=== PATIENT | female | born 1975 | race African-American/Black ===

== ENCOUNTER 2016-12-09 09:35 | Emergency (ER) | payer SELFPAY ==
[2016-12-09] MEDS ORDERED: ONDANSETRON 4 MG TAB.RAPDIS PO ONE (10:51)
[2016-12-09] MEDS ORDERED: HYDROCODONE/ACETAMINOPHEN 5-325 MG TABLET PO ONE (10:51)
[2016-12-09] MEDS ORDERED: DIPH/PERTUSS(ACELL)/TETANUS VAC/PF 0.5 ML SYR (>=10YO) IM ONE (10:51)
--- NOTE | 2016-12-09 10:55 | ER Document Report ---
HPI - HPI Patient complains to provider of: right plantar wound Onset: Just prior to arrival Onset/Duration: Sudden Quality of pain: Achy Severity: Severe Pain Level: 5 Context: Patient presents emergency department with laceration to bottom of her right foot. She reports she was going into a shed with her shoes on when her shoe fell off and she slid her foot on a nail. Patient does not remember when her last tetanus was. Patient reports that he was in her backyard with dirt no brackish water. Laceration ~3 cm vertical noted. No active bleeding. Associated Symptoms: None Exacerbated by: Walking Relieved by: Denies Similar symptoms previously: No Recently seen / treated by doctor: No - DERM Skin Color: Normal Past Medical History - General Information source: Patient - Social History Smoking Status: Never Smoker Chew tobacco use (# tins/day): No Frequency of alcohol use: Rare Drug Abuse: None Occupation: home health Lives with: Family Family History: Reviewed & Not Pertinent Patient has suicidal ideation: No Patient has homicidal ideation: No - Medical History Medical History: Negative Renal/ Medical History: Denies: Hx Peritoneal Dialysis Past Surgical History: Reports: Hx Section - 2002 - Immunizations Hx Diphtheria, Pertussis, Tetanus Vaccination: Yes - 2008 Vertical Provider Document - CONSTITUTIONAL Agree With Documented VS: Yes Exam Limitations: No Limitations General Appearance: WD/WN, Mild Distress - winces when wound palpated - INFECTION CONTROL TRAVEL OUTSIDE OF THE [place] IN LAST 30 DAYS: No - HEENT HEENT: Atraumatic, Normocephalic - NECK Neck: Normal Inspection, Supple - RESPIRATORY Respiratory: No Respiratory Distress O2 Sat by Pulse Oximetry: 97 - CARDIOVASCULAR Cardiovascular: Regular Rate - MUSCULOSKELETAL/EXTREMETIES Musculoskeletal/Extremeties: MAEW, FROM, Tender - right plantar foot proximal to great and 2nd digit with 3 cm vertical laceration noted, no active bleeding - NEURO Level of Consciousness: Awake, Alert, Appropriate Motor/Sensory: No Motor Deficit - DERM Integumentary: Warm, Dry Course - Re-evaluation Re-evalutation: 12/09/16 11:29 Wound cleaned well, xray neg for foreign body. Pt instructed on care of the laceration, Steri-Strips placed, postop shoe nonweightbearing for the next 3 days. Pt is instructed on signs and symptoms of infection. Patient was instructed on the importance of monitoring the foot. She'll be placed on pain medication with prophylactic antibiotics. Patient was instructed to return to the emergency department for any signs of infection she verbalized understanding. - Vital Signs Vital signs: Temp Pulse Resp BP Pulse Ox 97.8 F 85 17 122/88 H 97 12/09/16 09:45 12/09/16 09:45 12/09/16 09:45 12/09/16 09:45 12/09/16 09:45 - Diagnostic Test Radiology reviewed: Image reviewed, Reports reviewed - IMPRESSION: Negative three view right foot Procedures - Immobilization Right Foot Pre-Proc Neuro Vasc Exam: Normal Immobilizer type: Post-op shoe Performed by: Other - test preparation tutor Post-Proc Neuro Vasc Exam: Unchanged from pre-exam - Laceration/Wound Repair Right Foot Wound length (cm): 3 Wound's Depth, Shape: Superficial Laceration pre-procedure: Shur-Clens applied Wound Repaired With: Steri-strips - placed by Kelley ERIC, Dressing applied Discharge - Discharge Clinical Impression: right plantar foot laceration, Elevated blood pressure reading Condition: Stable Disposition: HOME, SELF-CARE Instructions: Antinausea Medication ([facility]), Oral Narcotic Medication ([facility]), Tetanus Immunization Given ([facility]), Cephalexin ([facility]), Care of Steri-Strip Closure ([facility]) Additional Instructions: *You have been treated for a laceration to the bottom of your foot *Steri strips have been placed to keep the wound closed, do not pick the steri strips off. *Take medication as prescribed for pain and nausea *Monitor the site for signs of infection such as increasing pain, redness, swelling, warmth *Stay off the foot, use the crutches, keep the foot clean *Follow up with a primary care provider within 3 days for recheck *Return to ED for signs of infection, worsening condition, changes, needs Prescriptions: Cephalexin Monohydrate [Keflex 250 Mg Capsule] 250 mg PO QID #20 capsule Hydrocodone/Acetaminophen [[place] 5-325 mg Tablet] 1 tab PO QID #15 tablet Forms: Elevated Blood Pressure, Return to Work
[2016-12-09] MEDS ORDERED: ONDANSETRON ODT 4 MG TAB (6 TAB/DSPK) PO PRN (11:38)
[2016-12-09 11:57] VITALS: BP 130/96
== END 2016-12-09 11:57 | disposition home or self-care (01) ==
LOC: ER 09:35
DX: S91.311A Laceration without foreign body, right foot, initial encounter (principal); W45.0XXA Nail entering through skin, initial encounter; Y92.098 Other place in other non-institutional residence as the place of occurrence of the external cause; Z23 Encounter for immunization
CPT/HCPCS: 99283; 90471; 73630; 90715; S0119